=== PATIENT | male | born 1980 | race Two or more races ===

== ENCOUNTER 2021-09-12 11:32 | Emergency (ER) | payer SELFPAY ==
--- NOTE | 2021-09-12 14:14 | ED ---
General Adult HPI - General Chief complaint: Recheck/Abnormal Lab/Rx Stated complaint: wants Covid test Time Seen by Provider: 09/12/21 14:10 Source: patient Mode of arrival: ambulatory Limitations: no limitations - History of Present Illness Initial comments: 41-year-old male presents to the emergency department requesting a COVID test. Patient states he does not have any symptoms and is not ill, but requires a negative test in order to enter [facility]. Patient denies any further complaints at this time. - Related Data Allergies Allergy/AdvReac Type Severity Reaction Status Date / Time No Known Allergies Allergy Verified 09/12/21 13:22 Review of Systems ROS Statement: Those systems with pertinent positive or pertinent negative responses have been documented in the HPI. ROS Other: All systems not noted in ROS Statement are negative. Past Medical History Past Medical History: No Reported History History of Any Multi-Drug Resistant Organisms: None Reported Past Surgical History: No Surgical Hx Reported Past Psychological History: No Psychological Hx Reported Smoking Status: Never smoker Past Alcohol Use History: None Reported Past Drug Use History: None Reported General Exam Limitations: no limitations (All developed, well nourished male in no acute distress.) General appearance: alert, in no apparent distress ENT exam: Present: normal exam, normal oropharynx, mucous membranes moist Respiratory exam: Present: normal lung sounds bilaterally. Absent: respiratory distress, wheezes, rales, rhonchi, stridor Cardiovascular Exam: Present: regular rate, normal rhythm, normal heart sounds. Absent: systolic murmur, diastolic murmur, rubs, gallop, clicks GI/Abdominal exam: Present: soft, normal bowel sounds. Absent: distended, tenderness, guarding, rebound, rigid Neurological exam: Present: alert, oriented X3, CN II-XII intact Psychiatric exam: Present: normal affect, normal mood Course Vital Signs 09/12/21 09/12/21 13:18 14:32 Temperature 97.9 F 98.5 F Pulse Rate 105 H 78 Respiratory 15 16 Rate Blood Pressure 141/98 128/78 O2 Sat by Pulse 100 98 Oximetry Medical Decision Making - Medical Decision Making 41-year-old male with no significant past medical history presents to the emergency department requesting a Covid test in order to enter [facility]. His physical exam findings are normal. Patient does not have any complaints. His Covid test was negative. Patient will be discharged home with appropriate paperwork and instructed to follow-up with PCP if needed. Return parameters were discussed. Patient verbalizes understanding and agrees with this plan. - Lab Data Lab Results 09/12/21 Range/Units 13:24 Coronavirus (PCR) Not Detected (Not Detectd) Disposition Clinical Impression: Normal exam Disposition: HOME SELF-CARE Condition: Stable Instructions (If sedation given, give patient instructions): Normal Exam (ED) Additional Instructions: Your COVID test is negative. If you require any further medical care, please follow-up with your primary care provider or return to the emergency department. Is patient prescribed a controlled substance at d/c from ED?: No Referrals: Nonstaff,Physician [Primary Care Provider] - 1-2 days Time of Disposition: 14:30
[2021-09-12 14:34] VITALS: BP 128/78; PULSE 78; RESP 16; TEMP 98.5
== END 2021-09-12 14:32 | disposition home or self-care (01) ==
LOC: EC 11:32
DX: Z11.52 Encounter for screening for COVID-19 (principal); Z20.822 Contact with and (suspected) exposure to COVID-19
CPT/HCPCS: 87635; 99282